=== PATIENT | female | born 1930 | race Caucasian/White ===

== ENCOUNTER → 2017-06-19 | Outpatient (CLI) | payer OTHER ==
[~2017-06-19] MED LIST: ASPI81CH PO; ATEN25 PO; ATOR10; Acidophilus La100 GM; Amlodipine Bes2.5 MG PO; Augmentin 875-1 EACH PO; CEPH250A PO; CODLIVC PO; ESOM20; ESOM20 PO; FOLI1 PO; GLUC500 PO; HIPREX1 GM PO; HYDR1TAB94 PO; LEVSOD100 PO; LEVSOD112 PO; LEVSOD200; LISI5 PO; LOSA50 PO; MAGCHL64ER PO; MOM PO; Multiple Vitam1 EAC1 PO; PYRI100 PO; ROSU5 PO; SOYA LECITHIN PO; STOOL SOFTNER PO
== END ==
LOC: LAB EV 15:32 → LAB SHORT 15:32
DX: N39.0 Urinary tract infection, site not specified (principal)
CPT/HCPCS: 87077; 87086; 87186

== ENCOUNTER → 2017-08-29 | Outpatient (CLI) | payer OTHER | END | disposition home or self-care (01) | LOC: LAB EV 12:15 → LAB SHORT 12:15 | DX: N39.0 Urinary tract infection, site not specified (principal) | CPT/HCPCS: 87077; 87086; 87186 ==

== ENCOUNTER → 2017-10-20 | Outpatient (CLI) | payer OTHER | LOC: LAB SHORT 13:21 → LAB EV 13:21 | DX: R35.0 Frequency of micturition (principal) | CPT/HCPCS: 87077; 87086; 87186 ==

== ENCOUNTER → 2018-03-29 | Outpatient (CLI) | payer OTHER | END | disposition home or self-care (01) | LOC: LAB SHORT 14:25 → LAB EV 14:25 | DX: R35.0 Frequency of micturition (principal) | CPT/HCPCS: 87077; 87086; 87186 ==

== ENCOUNTER → 2018-06-27 | Outpatient (CLI) | payer OTHER | END | disposition home or self-care (01) | LOC: LAB SHORT 14:10 → LAB EV 14:10 | DX: R35.0 Frequency of micturition (principal) | CPT/HCPCS: 87077; 87086; 87186 ==

== ENCOUNTER → 2018-09-26 | Outpatient (CLI) | payer OTHER ==
[~2018-09-26] MED LIST changes: +CEPH500 PO
== END | disposition home or self-care (01) ==
LOC: LAB EV 13:40 → LAB SHORT 13:40
DX: R35.0 Frequency of micturition (principal)
CPT/HCPCS: 87077; 87086; 87186

== ENCOUNTER 2018-11-20 16:34 | Emergency (ER) | payer OTHER ==
[~2018-11-20] VITALS: Ht 172.7 cm; Wt 58.5 kg
[~2018-11-20 16:34] MED LIST changes: -CEPH500 PO
[2018-11-20 17:35] LABS: Source, Urine Catheter
[2018-11-20 17:59] LABS: Bilirubin, Urine Neg (Neg); Blood, Urine 4+ (Neg); Color, Urine Yellow (P-Yellow); Glucose Qualitative, Urine Neg (Neg); Ketones, Urine 2+ (Neg); Leukocyte Esterase, Urine 2+ (Neg); Nitrite, Urine Pos (Neg); Protein, Urine 2+ (Neg); Specific Gravity, Urine 1.015 (1.003-1.022); Urobilinogen, Urine NORM (Normal)
[2018-11-20 18:12] LABS: Appearance, Urine Hazy (Clear)
[2018-11-20 18:23] LABS: Bacteria Many /hpf; Squamous Epithelial Cells Few /hpf (Few)
[2018-11-20] MEDS ORDERED: CEPH500 PO (19:20)
== END 2018-11-20 21:20 | disposition home or self-care (01) ==
LOC: ER 16:34
PROVIDERS: Emergency Medicine
DX: N39.0 Urinary tract infection, site not specified (principal); I10 Essential (primary) hypertension; E03.9 Hypothyroidism, unspecified; M19.90 Unspecified osteoarthritis, unspecified site; Z88.2 Allergy status to sulfonamides; Z88.5 Allergy status to narcotic agent; Z88.1 Allergy status to other antibiotic agents; Z88.8 Allergy status to other drugs, medicaments and biological substances; Z79.899 Other long term (current) drug therapy; Z79.82 Long term (current) use of aspirin; K21.9 Gastro-esophageal reflux disease without esophagitis
CPT/HCPCS: 81001; 87077; 87086; 87186; 96365; 99283-25; J0696; J7030; P9612

== ENCOUNTER → 2018-12-05 | Outpatient (CLI) | payer OTHER ==
[~2018-12-05] MED LIST changes: +CEPH500 PO
== END | disposition home or self-care (01) ==
LOC: LAB EV 11:30 → LAB SHORT 11:30
DX: N39.0 Urinary tract infection, site not specified (principal)
CPT/HCPCS: 87077; 87086; 87186

== ENCOUNTER → 2020-06-03 | Outpatient (CLI) | payer OTHER | END | disposition home or self-care (01) | LOC: LAB SHORT 18:06 → LAB 18:06 | DX: R35.0 Frequency of micturition (principal); R30.0 Dysuria | CPT/HCPCS: 87077; 87086; 87186 ==

== ENCOUNTER 2020-08-25 12:40 | Observation (INO) | payer OTHER ==
[~2020-08-25] VITALS: Ht 175.3 cm; Wt 63.5 kg
[2020-08-25 13:04] LABS: BASOPHILS ABSOLUTE AUTO 0.02 K/mm3 (0.00-0.23); BASOPHILS PERCENT AUTO 0 % (0-2); EOSINOPHILS ABSOLUTE AUTO 0.11 K/mm3 (0.00-0.68); EOSINOPHILS PERCENT AUTO 2 % (0-6); Hematocrit 41.7 % (33.0-51.0); Hemoglobin 13.5 g/dL (11.5-16.0); IMMATURE GRAN ABSOLUTE AUTO 0.02 K/mm3 (0.00-0.10); IMMATURE GRAN PERCENT AUTO 0 % (0-1); LYMPHOCYTES ABSOLUTE AUTO 1.34 K/mm3 (0.84-5.20); LYMPHOCYTES PERCENT AUTO 23 % (21-46); MONOCYTES ABSOLUTE AUTO 0.45 K/mm3 (0.16-1.47); MONOCYTES PERCENT AUTO 8 % (4-13); Mean Corpuscular HGB 30.8 pg (26.0-34.0); Mean Corpuscular HGB Conc 32.4 g/dL (31.5-36.5); Mean Corpuscular Volume 95 fL (80-100); Mean Platelet Volume 10.5 fL (9.1-12.4); NEUTROPHILS ABSOLUTE AUTO 3.92 K/mm3 (1.96-9.15); NEUTROPHILS PERCENT AUTO 67 % (41-73); Platelet Count 172 K/mm3 (150-400); RDW Coefficient Variation 13.8 % (11.7-14.2); RDW Standard Deviation 48.6 fL (35.1-46.3); Red Blood Cell Count 4.38 M/mm3 (3.80-5.20); White Blood Cell Count 5.86 K/mm3 (4.00-11.30)
[2020-08-25 13:18] LABS: Alanine Aminotransfer (ALT/SGP 19 U/L (12-78); Albumin/Globulin Ratio 1.1 (0.8-1.8); Alk Phos 65 U/L (50-136); Anion Gap 3 mmol/L (6-16); Aspartate Aminotrans (AST/SGOT 22 U/L (12-37); Bilirubin, Total 0.5 mg/dL (0.1-1.0); Blood Urea Nitrogen 29 mg/dL (8-24); Bun/Creatinine Ratio 36.1 (12.0-20.0); CO2, Blood 28 mmol/L (21-32); Calcium, Blood 9.1 mg/dL (8.5-10.1); Chloride, Blood 107 mmol/L (98-108); Globulin, Blood 3.8 g/dL (2.2-4.0); Glomerular Filtration Rate >60 (60-); Glucose, Blood 105 mg/dL (70-99); Potassium, Blood 4.8 mmol/L (3.5-5.5); Sodium, Blood 138 mmol/L (136-145); Total Protein, Blood 7.8 g/dL (6.4-8.2); Troponin I <0.015 ng/mL (0.000-0.040)
[2020-08-25 13:21] LABS: Source, Urine Clean Catch
[2020-08-25 13:33] LABS: Appearance, Urine Hazy (Clear); Bilirubin, Urine Neg (Neg); Blood, Urine 1+ (Neg); Color, Urine Yellow (P-Yellow); Glucose Qualitative, Urine Neg (Neg); Ketones, Urine 1+ (Neg); Leukocyte Esterase, Urine 2+ (Neg); Nitrite, Urine Neg (Neg); Protein, Urine Neg (Neg); Urobilinogen, Urine NORM (Normal)
[2020-08-25 13:44] LABS: Bacteria Many /hpf; Red Blood Cells, Urine 0-2 /hpf (0-2); Squamous Epithelial Cells Few /hpf (Few)
[2020-08-25] MEDS ORDERED: CEPH500 PO (14:28)
--- NOTE | 2020-08-25 21:24 | NUR ---
transfer report from Lana DANIEL RN on elderly Female being admitted for vertigo & N & V. Neg troponin, hypertensive, hypothyroid with elevated TSH. Neg head CT will get MRI head. Tele monitor fall precautions, Yvette SHER reports very weak unsteady. PT/OT ordered. Await admission.
[2020-08-26 04:54] LABS: BASOPHILS ABSOLUTE AUTO 0.02 K/mm3 (0.00-0.23); BASOPHILS PERCENT AUTO 0 % (0-2); EOSINOPHILS PERCENT AUTO 2 % (0-6); Hematocrit 41.7 % (33.0-51.0); Hemoglobin 13.8 g/dL (11.5-16.0); IMMATURE GRAN ABSOLUTE AUTO 0.02 K/mm3 (0.00-0.10); IMMATURE GRAN PERCENT AUTO 0 % (0-1); LYMPHOCYTES ABSOLUTE AUTO 1.57 K/mm3 (0.84-5.20); LYMPHOCYTES PERCENT AUTO 26 % (21-46); MONOCYTES ABSOLUTE AUTO 0.69 K/mm3 (0.16-1.47); MONOCYTES PERCENT AUTO 11 % (4-13); Mean Corpuscular HGB 31.4 pg (26.0-34.0); Mean Corpuscular HGB Conc 33.1 g/dL (31.5-36.5); Mean Corpuscular Volume 95 fL (80-100); Mean Platelet Volume 10.6 fL (9.1-12.4); NEUTROPHILS ABSOLUTE AUTO 3.71 K/mm3 (1.96-9.15); NEUTROPHILS PERCENT AUTO 61 % (41-73); Platelet Count 171 K/mm3 (150-400); RDW Coefficient Variation 13.6 % (11.7-14.2); RDW Standard Deviation 47.5 fL (35.1-46.3); White Blood Cell Count 6.11 K/mm3 (4.00-11.30)
[2020-08-26 05:14] LABS: Alanine Aminotransfer (ALT/SGP 17 U/L (12-78); Albumin, Blood 3.9 g/dL (3.4-5.0); Albumin/Globulin Ratio 1.2 (0.8-1.8); Alk Phos 63 U/L (50-136); Anion Gap 5 mmol/L (6-16); Aspartate Aminotrans (AST/SGOT 20 U/L (12-37); Bilirubin, Total 0.6 mg/dL (0.1-1.0); Blood Urea Nitrogen 18 mg/dL (8-24); Bun/Creatinine Ratio 23.4 (12.0-20.0); CO2, Blood 29 mmol/L (21-32); Calcium, Blood 9.2 mg/dL (8.5-10.1); Chloride, Blood 106 mmol/L (98-108); Creatinine, Blood 0.77 mg/dL (0.40-1.00); Globulin, Blood 3.3 g/dL (2.2-4.0); Glomerular Filtration Rate >60 (60-); Glucose, Blood 80 mg/dL (70-99); Potassium, Blood 3.9 mmol/L (3.5-5.5); Sodium, Blood 140 mmol/L (136-145); Total Protein, Blood 7.2 g/dL (6.4-8.2)
--- NOTE | 2020-08-26 07:46 | NUR ---
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 She is talkative but is poor historian. Incontient of large amts of urine after given IV fluid. PT strips several times does not use call mederos. Mild pleasant confusion. fall precautions. Has MRI screening completed.Hypertensive on cardiac meds baseline. 50 lb wt loss recently. Emesis in ER & large BM.
--- NOTE | 2020-08-26 10:48 | NUR ---
echocardiogram complete
--- NOTE | 2020-08-26 12:41 | NUR ---
RETURNED FROM MRI
[2020-08-26 16:27] LABS: SARS-Cov-2 (COVID-19) PCR, MMC NEGATIVE (NEGATIVE)
--- NOTE | 2020-08-26 17:55 | NUR ---
1641 DISCHARGING TO SNF. [facility]. IV PULLED INTACT. TELE REMOVED AND RETURNED. ASSISTED PT TO BATHROOM FOR VIODING. NEW ATTENDS PLACED. GOWN CLEAN. COIN WRAPPING MACHINE OPERATOR TO ASSIST PT TO DOOR APPROP. REPORT CALLED TO KESHA SHER.
--- NOTE | 2020-08-27 13:14 | NUR ---
ADMIT: 08/25/20 DISCHARGE: 08/26/20 DX: Vertigo CC: [facility]: [facility] Update 08/26/20: Per chart review with Dr. Gonzalez, pt. will be appropriate for discharge this afternoon. PT. recommending SNF and Dr. Gonzalez agreeable that would be the best plan moving forward. SNF paperwork sent as well as prior auth. Met with pt. to discuss discharge planning. Pt. concerned with cost of transportation. Reached out to [facility] to enquire about transportation resources. Care management stated that patients do not have transportation benefits at this time. Update 08/26/20: Prior auth approved for SNF. Pt. had requested [facility] and was accepted. Discharge packed placed in lock box outside of patient's room for transport. I was able to secure $4 transport through [employer] for pt. Assisted pt. with the cost and pt. was discharged successfully to [facility]. I contacted daughter Vangie and requested that she gather patient's belongings from her home and bring those to the facility. Vangie agreeable. Update 08/26/20: Post discharge I was notified that the discharge packet did not go with the pt. by nurse. Contacted [facility] and requested urgent faxline number. Sent packet and confirmed it was received at 1830. CAR team will F/U with [facility] to schedule pt. for follow-up. Additionally, I sent a note to facility requesting social studies department chair assist pt. in establishing with Medicaid. Pt. could use the assistance with resources as she has a very limited income. She also may require assisted living eventually and will need the usp care coverage from Medicaid. If [facility] CAR team could please ensure that process was started, the patient will be very grateful.
== END 2020-08-26 16:50 ==
LOC: ER 12:40 → MEDS 12:41
PROVIDERS: Physician Assistant; ADMIT Family Medicine
DX: R42 Dizziness and giddiness (principal); N30.10 Interstitial cystitis (chronic) without hematuria; I10 Essential (primary) hypertension; E03.9 Hypothyroidism, unspecified; Z66 Do not resuscitate; Z88.5 Allergy status to narcotic agent; Z88.2 Allergy status to sulfonamides; Z88.8 Allergy status to other drugs, medicaments and biological substances; Z79.82 Long term (current) use of aspirin; Z79.899 Other long term (current) drug therapy; Z20.822 Contact with and (suspected) exposure to COVID-19
CPT/HCPCS: 36415; 51701; 70450; 70551; 71045; 80053; 81001; 83690; 84443; 84484; 85025; 93005; 93010; 93306; 96360-59; 96372-59; 97110; 97162; 97166; 97530; 97535; 99285-25; A9270; G0378; J1650; J7030; U0004

== ENCOUNTER → 2020-10-23 | Outpatient (CLI) | payer OTHER | END | disposition home or self-care (01) | LOC: LAB EV 17:29 → LAB SHORT 17:29 | DX: N39.0 Urinary tract infection, site not specified (principal) | CPT/HCPCS: 87077; 87086; 87186 ==

== ENCOUNTER 2021-05-29 16:15 | Inpatient (IN) | payer OTHER ==
[~2021-05-29] VITALS: Ht 167.6 cm; Wt 46.9 kg
[2021-05-29 16:48] LABS: Source, Urine Fem Cath
[2021-05-29 16:51] LABS: Bilirubin, Urine Neg (Neg); Blood, Urine 2+ (Neg); Glucose Qualitative, Urine Neg (Neg); Ketones, Urine Neg (Neg); Leukocyte Esterase, Urine 2+ (Neg); Nitrite, Urine Pos (Neg); Protein, Urine 2+ (Neg); Urobilinogen, Urine NORM (Normal)
[2021-05-29 16:58] LABS: Appearance, Urine Cloudy (Clear); Color, Urine Pale Yellow (P-Yellow)
[2021-05-29 16:59] LABS: Bacteria Many /hpf; Squamous Epithelial Cells Few /hpf (Few)
[2021-05-29 17:00] LABS: Amorphous Heavy (0-Heavy); Hyaline Casts 0-2 /lpf (0-2); Mucus Light (0-Heavy)
[2021-05-29 17:51] LABS: BASOPHILS ABSOLUTE AUTO 0.02 K/mm3 (0.00-0.23); BASOPHILS PERCENT AUTO 0 % (0-2); EOSINOPHILS ABSOLUTE AUTO 0.07 K/mm3 (0.00-0.68); EOSINOPHILS PERCENT AUTO 1 % (0-6); Hematocrit 36.2 % (33.0-51.0); Hemoglobin 11.6 g/dL (11.5-16.0); IMMATURE GRAN ABSOLUTE AUTO 0.03 K/mm3 (0.00-0.10); IMMATURE GRAN PERCENT AUTO 0 % (0-1); LYMPHOCYTES ABSOLUTE AUTO 1.62 K/mm3 (0.84-5.20); LYMPHOCYTES PERCENT AUTO 18 % (21-46); MONOCYTES ABSOLUTE AUTO 1.23 K/mm3 (0.16-1.47); MONOCYTES PERCENT AUTO 14 % (4-13); Mean Corpuscular HGB 30.6 pg (26.0-34.0); Mean Corpuscular Volume 96 fL (80-100); Mean Platelet Volume 10.2 fL (9.1-12.4); NEUTROPHILS ABSOLUTE AUTO 6.04 K/mm3 (1.96-9.15); NEUTROPHILS PERCENT AUTO 67 % (41-73); Platelet Count 264 K/mm3 (150-400); RDW Coefficient Variation 13.6 % (11.7-14.2); RDW Standard Deviation 48.1 fL (35.1-46.3); Red Blood Cell Count 3.79 M/mm3 (3.80-5.20); White Blood Cell Count 9.01 K/mm3 (4.00-11.30)
[2021-05-29 18:08] LABS: Bun/Creatinine Ratio 38.6 (12.0-20.0); Calcium, Blood 9.3 mg/dL (8.5-10.1); Creatinine, Blood 0.91 mg/dL (0.40-1.00); Potassium, Blood 4.7 mmol/L (3.5-5.5)
[2021-05-29 19:08] LABS: International Normalized Ratio 1.24; Prothrombin Time Results 12.8 Sec (9.7-11.5)
[2021-05-30 04:05] LABS: Anion Gap 7 mmol/L (6-16); Blood Urea Nitrogen 28 mg/dL (8-24); Bun/Creatinine Ratio 36.4 (12.0-20.0); CO2, Blood 24 mmol/L (21-32); Calcium, Blood 9.2 mg/dL (8.5-10.1); Chloride, Blood 107 mmol/L (98-108); Creatinine, Blood 0.77 mg/dL (0.40-1.00); Glomerular Filtration Rate >60 (60-); Glucose, Blood 98 mg/dL (70-99); Potassium, Blood 4.2 mmol/L (3.5-5.5); Sodium, Blood 138 mmol/L (136-145)
--- NOTE | 2021-05-30 06:22 | NUR ---
admission completed, patient unable to state if recv'd influenza vaccine due to confusion. Will follow up with family for consent to give. temp slowly increasing through out night reaching 101.5, attempt made to give po tylenol, too drowsy to take po meds. Dr Goldstein called and advised. order recieved to change tylenol to [place]. incont of urine, cleaned and changed as needed for incontinence. \ blood pressure decreased through night, weined down on nicardipine- on standby at this time.
--- NOTE | 2021-05-30 07:28 | NUR ---
TOOK OVER CARE OF PT AT 0700, PT RESTING ON RA, NO DRIPS RUNNING, BLOOD PRESSURES SOFT- SEE VITALS
--- NOTE | 2021-05-30 12:54 | NUR ---
PT GIVEN FULL BED BATH, ORAL CARE, LOTION, HAIR WASHED,REPOSITIONED AND WARM BLANKET PLACED.
--- NOTE | 2021-05-30 13:00 | NUR ---
Comfort care visit New comfort care orders placed by Dr. Babb this morning. Radha is a 89 year lady with a history of dementia. Her step dtr, Bhumika, is at the bedside. aRdha has a UTI and has had multiple falls and now has subdural hematomas bilat. Family has elected to proceed with comfort care. Radha was medicated with roxinal as this teletypewriter operator was first entering the room. She did not awaken. Spoke with her step dtr, Bhumika, who is tearful but appropriate at the bedside. Bhumika has been caring for Radha in her home for the past 9 months. Bhumika states she and her sister in [place] are the only two relatives Radha has. Radha did not have any biological children of her own. Bhumika states Better has been her mom longer than her biological mother was (50+ years) as Bhumika states her biological mom when she was 22. Radha cared for Bhumika's dad until he from cancer. Discussed comfort care and EOL signs. Answered Bhumika's questions. Provided a copy of the hospice booklet for Bhumika for information. Bhumika states at this time that Radha was no longer able to walk and she doesn't feel that she could care for her any longer in her home. She states Radha has declined rapidly and that she anticipates she will pass away her in the hospital. Offered emotional support and provided Bhumika with some water. Explained that Radha will be transferred up to the medical floor when staff and a bed are available. PC to remain available. Anticipate that Radha's condition will continue to decline rapidly.
--- NOTE | 2021-05-30 17:00 | NUR ---
SUMMARY PT ON COMFORT CARE, ON RA. SIGNS OF DISCOMFORT AND AIR HUNGER ARE BEING MANAGED BY ROXANOL AT THIS TIME, A SCOPALAMINE PATCH WAS PLACED ON PT ON THE LEFT SIDE OF HER NECK. DAUGHTER CAME AND SAT AT BEDSIDE FOR SEVERAL HOURS TODAY AND FACTIMED PT'S OTHER DAUGHTER. PT IS MINIMALLY INTERACTIVE, DAUGHTER STATED ALYSON PT USUALLY ONLY HAS A TOTAL OF FOUR HOURS OF BEING AWAKE RECENTLY. ORAL CARE AND TURNS PERFORMED Q2.
--- NOTE | 2021-05-30 19:51 | NUR ---
ASSUMED CARE RECEIVED REPORT AT 1900. PT ON COMFORT CARE AT THIS TIME. SHE IS ON ROOM AIR, HAS A SCOPOLAMINE PATCH IN PLACE BEHIND LEFT EAR AND SHOWS NO SIGNS OF DISCOMFORT, PAIN, OR AIR HUNGER AT THIS TIME. CHANGED HER BRIEF AND PADDING AND REPOSITIONED WITH DAY SHIFT NURSE. SHE IS MINIMALLY INTERACTIVE, BUT DOES AROUSE TO VOICE. ORDERS REVIEWED, WILL TREAT PRESCRIBED.
--- NOTE | 2021-05-31 07:52 | NUR ---
ASSUMING PT CARE: COMFORT CARE. RESPONSIVE ONLY TO PAIN. PT RESTING W/ EYES CLOSED, RR EVEN & UNLABORED 14/min. NO S/Sx OF AIR HUNGER OR PAIN. SPO2 96%. HR 69. MEPILEX DRESSINGS PLACED TO JACY BONY PROMINENCE OF ILIAC CREST. REPOSITIONED TO R SIDE. LIPS MOISTURIZED.
--- NOTE | 2021-05-31 14:00 | NUR ---
FAMILY @ BEDSIDE. COMFORT CARE COFFEE CART PROVIDED.
--- NOTE | 2021-05-31 15:50 | NUR ---
Received referral from [facility] Farmworker [employer] (Abbey Burnett) on 05/31/2021. Patient is to discharge with orders for hospice and family elected [facility]. Gathered supporting documentation for referral (face sheet, labs, imaging, progress notes, palliative care note, and H&P) and sent to [facility] Hospice music specialist (Zackery Duarte) for review of hospice appropriateness and ability to accept patient onto service post discharge. Will await further information from hospice music specialist regarding the above. Cintia Banda Referral Liaison
--- NOTE | 2021-05-31 16:00 | NUR ---
HOSP BED TURNED SO PT IS ABLE TO FACE THE OUTSIDE WINDOW. PT AWAKES TO HER NAME, ABLE TO ANSWER YES/NO QUESTIONS. CONTINUES TO DENY PAIN. STEP DAUGHTER AT BEDSIDE EDUCATED ON THE COMFORT CARE PROCESS. OPPORTUNITY PROVIDED FOR QUESTIONS, ALL QUESTIONS ANSWERED. +ORAL CARE, +SKIN CARE.
--- NOTE | 2021-05-31 16:36 | NUR ---
Comfort care visit and case conference t/o day with Dr TONI, RN, [facility] CM - Comfort care visit made to bedside this afternoon. Pt's step jc at bedside, appropriately tearful and grieving. She appears and reports being exhausted. She plans to go home to sleep but wants to be notified of any changes. Pt is supine, positioned on her right side with hob elevated. She appears extremely frail and pale. Her respirations are very shallow/even. Discussed s/s jc may start to notice as progression of dying process. Updated TONY MUÑOZ on status and plan to reevaluate in am for progression and appropriateness of d/c planning discussions based on assessment in am. Jc verbalized great appreciation for all of staffs' good care of her and her mom.
--- NOTE | 2021-05-31 20:00 | NUR ---
ASSUMED CARE OF PT, SHE IS NOTED CURRENTLY SLEEPING, RESP EVEN AND REGULAR, NO GRIMACING OR RESTLESSNESS NOTED AT PRESENT. WILL CONT TO MONITOR.
--- NOTE | 2021-05-31 20:01 | NUR ---
ASSUMED CARE OF PT, NOTED TO CURRENTLY APPEAR TO BE SLEEPING, RESP EVEN AND REGULAR, NO GRIMACING OR RESTLESSNESS NOTED, WILL MONITOR.
--- NOTE | 2021-06-01 07:46 | NUR ---
PT DENIES NEEDS WHEN SHE IS ABLE TO UNDERSTAND QUESTIONS, EXTREMELY HARD OF HEARING, HOWEVER SHE WAS NOTED TO CRY OUT WITH REPOSITIONING AND DID ACCEPT DOSES OF ROXANOL PO, 20 MG EACH ADMINISTRATION PRIOR DOSES WERE NOTED TO HAVE BEEN 20 MG AND PT TOLERATED WELL. TURNED EVERY 2 HOURS THIS SHIFT, SMALL INCONT VOIDS NOTED INTERMITTENTLY.
--- NOTE | 2021-06-01 10:47 | NUR ---
Received notification from [facility] Hospice club former (Zackery Duarte) that patient is hospice appropriate and able to be accepted onto service post discharge. Will attempt to meet with patient and family today to further discuss the above. Will continue to monitor and follow for discharge. Cintia Banda Referral Liaison
--- NOTE | 2021-06-01 11:51 | NUR ---
Comfort care visit and case conference done with pt's nurse and day care worker from [facility]. Pt is sleeping soundly. Resp even and unlabored. Pt did not wake to voice or touch. She appears very comfortable and calm. Jc not present currently. Status and input obtained from RN and I called CM with update on current status. She appears stable for transfer to home or another setting for hospice care at this time.
--- NOTE | 2021-06-01 18:46 | NUR ---
PT COMFORT CARE. WILL MOAN WITH REPOSITIONING BUT NO OTHER RESPONSE ALL DAY. DAUGHTER AT BEDSIDE. NO CHANGES.
--- NOTE | 2021-06-02 00:06 | NUR ---
PAIN WITH MOVEMENT OF UPPER EXTREMITIES CONTINUES HOWEVER SUBSIDES WITH CESSATION OF MOVEMENT, WILL MONITOR FOR INCREASED CPOT SCORE AT REST
--- NOTE | 2021-06-02 06:02 | NUR ---
PT CONTINUES COMFORT CARE STATUS, TURNED EVERY 2 HOURS THIS SHIFT, SHE REMAINS INCONT OF URINE, NONVERBAL, CPOT SCALE USED FOR PAIN, ROXANOL ADMIN X 2 TONIGHT FOR INCREASED DISCOMFORT WITH POSITION CHANGES.
--- NOTE | 2021-06-02 08:04 | NUR ---
97.6 temporial, moves eyes to voice not touch, not making need known, mepilex in place, turned to right side. dr serna rounded. report given saying family will be moving forward with hospice today, pulses +2
--- NOTE | 2021-06-02 10:59 | NUR ---
PATEINT REPOSITIONED, WET TOOTHETE TO MOUTH
--- NOTE | 2021-06-02 11:00 | NUR ---
REPOSITIONED, SEAN CARE, INCONTINENT OF URINE, TOLERATED EASILY, VERY STIFF TO MOEVEMENT, ARMS CONTRACTED
--- NOTE | 2021-06-02 13:56 | NUR ---
FAMILY IN WITH PATIENT, PATIENT OPENED EYES AND SMILED TO FAMILY, SPOKE WITH ENDA PHARMACY TECHNOLOGY INSTRUCTOR AT [facility], HOSPICE HAS ACCEPTED PATIENT BUT HAVING TO WAIT FOR A BED TO OPEN, EDNA REPORTED THE TRANSFER FROM [facility] TO [facility] WILL MORE LIKELY HAPPEN TOMORROW
--- NOTE | 2021-06-02 14:10 | NUR ---
NO GRIMACE, NO DISTRESS, EVEN NONLABORED RESPIRATIONS
--- NOTE | 2021-06-02 14:14 | NUR ---
aircraft refueller in room with patient and family
--- NOTE | 2021-06-02 14:50 | NUR ---
Spiritual Care Visit... At the recommendation of an ICU nurse. Pt. is mostly non-responsive. Step daughter is present. Pt. displayed some evidence of responding to our conversation with eyes directed at step-daughter. Facilitated a life review, and with theraputic listening was able to address some unsettledness in the family about EOL logistics. Family spoke of plans to discharge pt. to a long-term care fecility. Normalized the Pt./family experience. Step- daughter displayed evidence of understanding. Identified source of pts. christopher and belief. Pastorally prayed for Pt. and family. Continued to develop rapport. Step-daughter verbalized gratitude for the spiritual care visit. Step-daughter verbalized gratitude for the spiritual care visit.
--- NOTE | 2021-06-02 16:52 | NUR ---
REPOSITIONED, [facility], UNABLE TO MAKE NEEDS KNOWN, PATIENT SMILE AND SHOCK HEAD YES AND NO, ORAL CARE, SEAN CARE, ATTENDS CDI
--- NOTE | 2021-06-02 16:53 | NUR ---
STORE CONSULTANT PRAYED WITH PATIENT AND DAUGHTER, REPOSITIONED, ORAL CARE, FACE WASH, ATTENDS CDI
--- NOTE | 2021-06-02 17:15 | NUR ---
COMFORT CARE, INTERACTION MINIMAL, UNABLE TO MAKE NEEDS KNOWN, REPOSITIONED EVERY TWO HOURS, REFUSED ORAL CARE, LEFT SHOULDER IS A ROTATOR INJURY. PLACEMENT AT HOSPICE TO POSSIBLEY HAPPEN ON 06/03/21, DAUGHTER IN LAW DOUG HELPFUL WITH CARE.MEPILEX IN PLACE FOR FRAGILE SKIN ON KYLE AREAS, VERY RAMPART. WILL RELAY TO PM RN, ROCÍOTM
--- NOTE | 2021-06-02 19:37 | NUR ---
ASSUMED CARE PT APPEARS TO BE SLEEPING, HOWEVER SHE DOES OPEN EYES TO HER NAME. SHE IS VERY HARD OF HEARING. RESISTANT TO ORAL CARE AND BITES DOWN, APPLIED MOISTURIZER AROUND MOUTH. CHANGED ATTENDS AND REPOSITIONED. SHE DENIES PAIN, AND MOUTHS YES OR NO TO SOME QUESTIONS. HR IS SINUS TACHYCARDIA WITH RATE IN 130-150'S, WHICH WAS NOTED TO HAVE CHANGED EARLIER TODAY. ANTICIPATING HOSPICE PLACEMENT TOMORROW.
--- NOTE | 2021-06-03 04:04 | NUR ---
PT HAD NO ACUTE CHANGES DURING SHIFT. RESPIRATIONS UNLABORED AND EVEN, HR REMAINS AFIB WITH RATE IN 130-150'S. COMFORT CARE MEASURES SUCH Q2H REPOSITIONING AND ATTENDS CHANGES DONE. MEDICATED WITH PRN MORPHINE AND LORAZEPAM PER EMAR. PT ONLY MOANS OUT WITH REPOSITIONING. REPORT GIVEN TO CHRISTOS GRIDER AT 0400.
--- NOTE | 2021-06-03 06:16 | NUR ---
ASSUMED CARE AT 0400. SHIFT SUMMARY: PT ON COMFORT CARE PROTOCOL. HR 130's AFIB, OXYGEN SATURATION RANGING FROM 80% TO 89% ON ROOM AIR. PT SOILED BRIEF WITH URINE, CHANGED AND REPOSITIONED AT 0600. PT SEEMED UNCOMFORTABLE AND IN PAIN AFTER REPOSITIONING AND ATTENDING TO CARE, PRN MORPHINE GIVEN SUBLINGUALLY TO ALLEVIATE ANY DISCOMFORT ASSESSED. PLAN FOR PT IS TO D/C WITH HOSPICE CARE TODAY.
--- NOTE | 2021-06-03 08:04 | NUR ---
INITIAL ASSESSMENT PATIENT SLEEPING UPON NURSE ENTERING ROOM. PATIENT MOANING WITH AM CARE AND REPOSITIONING. PRN PAIN MEDICATION GIVEN. MEPILEX APPLIED TO COCCYX. MEPILEX NOTED TO BILAT HEELS. SCOPOLAMINE PATCH BEHIND EAR. ATTENDS DRY. WILL CONTINUE TO MONITOR FREQUENTLY.
--- NOTE | 2021-06-03 10:09 | NUR ---
SIGNS OF PAIN WITH REPOSITIONING. PRN PAIN MEDICATION GIVEN. OTHERWISE PATIENT APPEARS COMFORTABLE. ATTENDS AND GOWN CHANGED. WILL CONTINUE TO MONITOR.
--- NOTE | 2021-06-03 12:54 | NUR ---
Late Entry from 06/02/2021 at 1445: Met with patient's daughter (Vangie Castro) to further hospice services and election of [facility]. Patient's daughter is agreeable to the above. Discussed what hospice is (reserved for patients with a terminal diagnosis with life expectancy of 6 months or less). Discussed that some patients exceed the 6 months expectancy and stay on service while other patients may stabilize and come off hospice. Patient's daughter verbalized understanding of the above. Discussed with patient's daughter that hospice service focuses on quality of life at the end of life and that rather than measuring the quantity of days, the quality of those days would be measured. Discussed with patient's daughter that with hospice service the goal would be to keep the patient out of the hospital and comfortable by managing symptoms at home. Patient's daughter verbalized understanding. Discussed the people, prescriptions, and equipment of hospice. People- discussed the team of people and their roles (RNs, chaplains, therapists, LCSWs, CNAs, and volunteers) that would be there to support not only the patient but also their family during this time. Explained to the patient's daughter that the team would be custom tailored to the patient needs during this time. Patient's daughter verbalized understanding. Prescriptions- discussed that we utilize a mail order pharmacy ([facility]) to provide medications related to the hospice diagnosis and for symptom management. All other medications that patient chose to stay on would be patient's and/or patient's family's responsibility to provide and pay for. Patient's daughter verbalized understanding. Discussed that upon discharge patient would be given three prescriptions, one for morphine 20mg/mL #30mL (0.25mL - 1mL PO/SL Q1H PRN SOB/pain), one for lorazepam 2mg/mL #30mL (0.25mL - 0.5mL PO/SL Q4H PRN anxiety), and one for hyoscyamine 0.125mg SL tablets #30 (1 SL Q2H PRN secretions). Explained to the patient's daughter that as patient would not yet be admitted to hospice service at the time of discharge those prescriptions would be patient/patient's family's responsibility to fill and pay for. Patient's daughter verbalized understanding. Equipment- discussed with patient's daughter that we contract through [employer] to provide DME such as hospital beds, commodes, etc. to patient. Discussed with patient's daughter that as patient was discharging to [facility], patient would likely not require DME. However in the event that [facility] did have equipment needs, this sheet writer would coordinate with them and place order for delivery the morning of discharge. Patient's daughter verbalized understanding. Discussed with patient's daughter that once patient was admitted onto hospice services the goal would be for them to contact us ([facility]) over contacting 911 or presenting back to the hospital/ED. Patient's daughter verbalized understanding. Discussed the tentative discharge plans for - 06/03/2021 at 1130 with preferred method of transport- medical transport via gurney. Discussed with patient's daughter that this sheet writer would arrange transportation for patient. Patient's daughter verbalized understanding. Offered a chance for patient's daughter to ask questions regarding the above of which there were none. Will continue to monitor and follow as appropriate for discharge. Cintia Banda Referral Liaison
--- NOTE | 2021-06-03 12:56 | NUR ---
PRN PAIN MEDICATION GIVEN FOR REPOSITIONING PATIENT MOANS AND GRIMACES WHEN MOVED IN BED. ATTENDS DRY. ORAL CARE PERFORMED. NO OTHER ACUTE CHANGES TO NOTE ON AT THIS TIME. WILL CONTINUE TO MONITOR.
--- NOTE | 2021-06-03 12:59 | NUR ---
Late Entry from 06/03/2021 at 0944: Spoke with [facility] (Trish Glaser) regarding anticipated discharge today at 1130. Per [facility] they will not be able to receive patient until tomorrow- 06/04/2021. Anticipated dishcarge is now Monday- 06/04/2021 at 1030. Notified bedside RN (Vaishali Shipman), [facility] power generating plant operator (Zackery Duarte), and patient's daughter of the above. Will continue to monitor and follow for discharge. Cintia Banda Referral Liaison
--- NOTE | 2021-06-03 14:55 | NUR ---
ATTENDS DRY. PAIN MED GIVEN FOR REPOSITIONING. NO OTHER ACUTE CHANGES TO NOTE ON AT THIS TIME.
--- NOTE | 2021-06-03 14:56 | NUR ---
SHIFT SUMMARY PATIENT HAS REMAINED MOSTLY SLEEPING ALL OF TODAY. PATIENT DOES WAKE BRIEFLY WITH REPOSITIONING AND NURSING CARE. PATIENT MOANS AND GRIMACES WITH REPOSITIONING. PRN PAIN MEDICATION HAS BEEN GIVEN AT EACH REPOSITION TO TRY AND HELP WITH PATIENT COMFORT. ATTENDS IN PLACE AND DRY AT THIS TIME. PATIENT APPEARS WITHOUT PAIN OR DISTRESS AT THIS TIME. PLAN IS FOR PATIENT TO GO TO FACILITY FOR HOSPICE IN MORNING. REPORT WILL BE GIVEN TO ASSUMING NURSE.
--- NOTE | 2021-06-03 15:24 | NUR ---
ASSUMPTION OF CARE RECEIVED REPORT FROM ANA CRISTINA SHER, ASSUMED CARE OF PATIENT AT THIS TIME. PATIENT IN BED WITH EYES CLOSED, NO S/S OF DISTRESS. WILL REVIEW ORDERS AND PROVIDE COMFORT NEEDED.
--- NOTE | 2021-06-03 19:15 | NUR ---
ASSUMED CARE. REPORT RECEIVED FROM JOHN RN. PT RESTING QUIETLY IN BED ATT. PT DOES NOT RESPOND TO VERBAL STIMULI. PT ON ROOM AIR, NO ACUTE NEEDS AT THIS TIME. WILL CONTINUE TO MONITOR.
--- NOTE | 2021-06-03 19:31 | NUR ---
PT RESTING QUIETLY, NO APPARENT DISTRESS. ORAL CARE COMPLETED.
--- NOTE | 2021-06-04 06:39 | NUR ---
SHIFT SUMMARY. PT RESTED QUIETLY THROUGHOUT SHIFT, NO CHANGE IN PT CONDITION. Q2 REPOSITIONING/CARE PROVIDED. WILL CONTINUE TO MONITOR AND REPORT OFF TO DAYSHIFT RN.
[2021-06-04 08:59] LABS: Influenza A, PCR NEGATIVE (NEGATIVE); Influenza B, PCR NEGATIVE (NEGATIVE); Resp Syncytial Virus, PCR NEGATIVE (NEGATIVE); SARS-Cov-2 (COVID-19) PCR, MMC NEGATIVE (NEGATIVE)
--- NOTE | 2021-06-04 09:46 | NUR ---
Patient is to discharge at 1030 to [facility] with orders for hospice. Contacted [facility] (Ibeth) to arrange gurney transport to facility listed above. Pick-up at 1030 will be provided by XXX. Faxed copy of face sheet, PCS form, and DNR status to [facility] Business office per protocol. Placed copies of the above in nurse dietary server for transportation planning engineer. Notified [facility] Sand Mixer (Abbey Burnett), and bedside RN (Mark Lindsay) of the above. All are agreeable to the above. Requested discharge orders from hospitalist (Dr. Dunn) through [facility] [employer]. Provided hard copy prescriptions for morphine and lorazepam to facility via facility discharge envelope. Copies of prescriptions faxed to [facility] (Guanako 200 RN) and facility's preferred pharmacy ([facility]). Faxed copies of discharge order and med list to [facility] industrial gas production operator and [facility] (Guan[address] RN). Additionally discharge medication list was faxed to facility's preferred pharmacy ([facility]). No further interventions required. Cintia Banda Referral Liaison
--- NOTE | 2021-06-04 09:51 | NUR ---
REPORT GIVEN TO ESPERANZA Portillo RN, AT [facility]. TRANSPORT TEAM TO BE HERE @5602
--- NOTE | 2021-06-04 12:01 | NUR ---
Spiritual Care visit. Focused on Pts. Step daughter who was a little unsettled regarding the delay of transfer of Pt. to hospice care. Pt. is at EOL. Normalized the pt. experience and facilitated a life review. Gave pastoral certified travel counselor, and prayed for Step-daughter. Step-daughter verbalized gratitude for the spiritual care visit.
== END 2021-06-04 12:47 | disposition hospice, inpatient (51) | DRG 82 ==
LOC: ER 16:15 → ICUW 16:16 → ICUE 16:16
PROVIDERS: Family Medicine; Student in an Organized Health Care Education/Training Program; ADMIT Hospitalist
DX: S06.5X9A Traumatic subdural hemorrhage with loss of consciousness of unspecified duration, initial encounter (principal); G93.5 Compression of brain; N39.0 Urinary tract infection, site not specified; G93.49 Other encephalopathy; F03.90 Unspecified dementia, unspecified severity, without behavioral disturbance, psychotic disturbance, mood disturbance, and anxiety; I16.0 Hypertensive urgency; Z51.5 Encounter for palliative care; E03.9 Hypothyroidism, unspecified; G89.29 Other chronic pain; K21.9 Gastro-esophageal reflux disease without esophagitis; M54.59 Other low back pain; R40.2252 Coma scale, best verbal response, oriented, at arrival to emergency department; R40.2142 Coma scale, eyes open, spontaneous, at arrival to emergency department; R40.2362 Coma scale, best motor response, obeys commands, at arrival to emergency department; M19.90 Unspecified osteoarthritis, unspecified site; W01.0XXA Fall on same level from slipping, tripping and stumbling without subsequent striking against object, initial encounter; Z98.51 Tubal ligation status; Z79.890 Hormone replacement therapy; Z87.440 Personal history of urinary (tract) infections; Z88.5 Allergy status to narcotic agent; Z79.82 Long term (current) use of aspirin; Z88.2 Allergy status to sulfonamides; Z79.899 Other long term (current) drug therapy; Z98.890 Other specified postprocedural states; Z95.4 Presence of other heart-valve replacement; Z90.49 Acquired absence of other specified parts of digestive tract; Z98.49 Cataract extraction status, unspecified eye; Z91.09 Other allergy status, other than to drugs and biological substances; Z90.710 Acquired absence of both cervix and uterus
CPT/HCPCS: 0241U; 36415; 70450; 71045; 72170; 73030; 80048; 81001; 82550; 85025; 85610; 85730; 86850; 86900; 86901; 87077; 87086; 87186; 96365; 96366; 96368; 96375; 99285-25; A9270; G0378; J0696; J1953; J2060; J7050